=== PATIENT | female | born 1995 | race Caucasian/White ===

== ENCOUNTER 2020-09-30 16:15 | Inpatient (IN) | payer BC, OTHER ==
[~2020-09-30] VITALS: Ht 160 cm; Wt 93.0 kg
[~2020-09-30 16:15] MED LIST: FERROUS SULFAT325 M2 PO
[2020-09-30 17:30] LABS: HEMOGLOBIN 10.2 gm/dl (12.3-15.3); RED BLOOD COUNT 4.32 M/UL (4.00-5.10); WHITE BLOOD COUNT 14.5 K/UL (4.5-11.0)
[2020-09-30] MEDS ORDERED: LEXAPRO5 MG PO (17:49)
[2020-09-30] MEDS ORDERED: VITAMIN C100 MG PO (17:49)
[2020-09-30] MEDS ORDERED: UNISOM25 MG PO (17:50)
[2020-09-30] MEDS ORDERED: PRENATAL VITAM1 EAC3 PO (17:50)
[2020-10-02 07:03] LABS: HEMOGLOBIN 9.8 gm/dl (12.3-15.3)
== END 2020-10-02 21:24 | disposition home or self-care (01) | DRG 807 ==
LOC: GENOP 16:15 → OB 16:40
PROVIDERS: ADMIT Obstetrics & Gynecology
PROC: 0U7C7ZZ Dilation of Cervix, Via Natural or Artificial Opening (ICD-10-PCS; 2020-09-30)
PROC: 10E0XZZ Delivery of Products of Conception, External Approach (ICD-10-PCS; principal; 2020-10-01)
PROC: 0KQM0ZZ Repair Perineum Muscle, Open Approach (ICD-10-PCS; 2020-10-01)
PROC: 10907ZC Drainage of Amniotic Fluid, Therapeutic from Products of Conception, Via Natural or Artificial Opening (ICD-10-PCS; 2020-10-01)
PROC: 3E02340 Introduction of Influenza Vaccine into Muscle, Percutaneous Approach (ICD-10-PCS; 2020-10-02)
DX: O99.02 Anemia complicating childbirth (principal); Z37.0 Single live birth; D64.9 Anemia, unspecified; O76 Abnormality in fetal heart rate and rhythm complicating labor and delivery; O70.1 Second degree perineal laceration during delivery; Z20.822 Contact with and (suspected) exposure to COVID-19; Z23 Encounter for immunization; Z3A.39 39 weeks gestation of pregnancy
CPT/HCPCS: 36415; 51702; 81001; 82800; 85014; 85018; 85025; 90471; 90715; J2210; J2405; J2590; J3370; J7030; J7070; J7120; U0003